=== PATIENT | male | born 1970 | race African-American/Black ===

== ENCOUNTER 2017-08-06 07:13 | Emergency (ER) | payer MEDICAID, OTHER ==
[2017-08-06 07:21] VITALS: BP 123/102; PULSE 78; RESP 16; TEMP 97.7; O2SAT 98
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
== END 2017-08-06 07:55 | disposition home or self-care (01) ==
DX: S39.012A Strain of muscle, fascia and tendon of lower back, initial encounter (principal); S16.1XXA Strain of muscle, fascia and tendon at neck level, initial encounter; V89.2XXA Person injured in unspecified motor-vehicle accident, traffic, initial encounter; Y92.410 Unspecified street and highway as the place of occurrence of the external cause